=== PATIENT | female | born 1970 | race Caucasian/White ===

== ENCOUNTER 2018-09-28 22:30 | Emergency (ER) | payer SELFPAY ==
[~2018-09-28] VITALS: Ht 170.2 cm; Wt 72.6 kg
[2018-09-28 22:50] VITALS: BP 123/79
--- NOTE | 2018-09-28 23:02 | NUR ---
XRAY IS AT THE BEDSIDE.
== END 2018-09-28 23:52 | disposition home or self-care (01) ==
LOC: ER 22:30
DX: S92.512A Displaced fracture of proximal phalanx of left lesser toe(s), initial encounter for closed fracture (principal); S92.411A Displaced fracture of proximal phalanx of right great toe, initial encounter for closed fracture; F41.9 Anxiety disorder, unspecified; W51.XXXA Accidental striking against or bumped into by another person, initial encounter; Y93.89 Activity, other specified; Y92.89 Other specified places as the place of occurrence of the external cause; Y99.8 Other external cause status
CPT/HCPCS: 73630-TC